=== PATIENT | female | born 1945 | race Caucasian/White ===

== ENCOUNTER 2017-01-03 06:02 | Inpatient (IN) | payer OTHER ==
[2017-01-02 08:07] LABS: BASOPHIL % 0.5 % (0-2); PLATELET COUNT 211 x10^3mcL (130-400); RED CELL DISTRIBUTION WIDTH 14.5 % (11.5-14.5)
[2017-01-02 08:19] LABS: CALCIUM 8.9 mg/dL (8.5-10.1); CARBON DIOXIDE 28.2 mmol/L (21-32); CHLORIDE SERUM 104 mmol/L (98-107); CREATININE SERUM 0.7 mg/dL (0.6-1.0); GFR1 > 60 mL/min; GLUCOSE SERUM 173 mg/dL (74-106); POTASSIUM SERUM 4.2 mmol/L (3.5-5.1); SODIUM SERUM 141 mmol/L (136-145)
[~2017-01-03] VITALS: Ht 154.9 cm; Wt 72.6 kg
[2017-01-03 06:27] VITALS: BP 149/75
[2017-01-03 13:14] VITALS: BP 118/59
[2017-01-03 16:41] VITALS: BP 118/59
[2017-01-03 17:11] LABS: ALBUMIN 3.1 g/dL (3.4-5.0); ALKALINE PHOSPHATASE 218 U/L (46-116); ALT/SGPT 487 U/L (14-59); BILIRUBIN TOTAL 1.8 mg/dL (0.20-1.00); CALCIUM 8.3 mg/dL (8.5-10.1); CARBON DIOXIDE 25.8 mmol/L (21-32); CHLORIDE SERUM 102 mmol/L (98-107); CREATININE SERUM 0.8 mg/dL (0.6-1.0); GFR1 > 60 mL/min; GLUCOSE SERUM 296 mg/dL (74-106); LIPASE 256 IU/L (73-393); POTASSIUM SERUM 4.2 mmol/L (3.5-5.1); SODIUM SERUM 136 mmol/L (136-145); TOTAL PROTEIN, SERUM 6.5 g/dL (6.4-8.2)
[2017-01-03 17:12] LABS: AST/SGOT 1505 U/L (15-37)
[2017-01-03 17:34] VITALS: BP 118/54
[2017-01-03 17:40] LABS: MAGNESIUM 1.6 mg/dL (1.8-2.4); PHOSPHOROUS 3.7 mg/dL (2.5-4.9)
[2017-01-03 17:41] LABS: CHOLESTEROL/HDL RATIO 4.5
[2017-01-03 17:43] LABS: T3 TOTAL 0.85 ng/mL
[2017-01-03 17:58] LABS: FREE T4 1.26 ng/dL (0.76-1.46); FREE THYROXINE INDEX 3.5 ug/dL (1.4-4.5); T4(THYROXINE) 9.6 ug/dL (4.7-13.3)
[2017-01-03 20:02] LABS: UA SPECIFIC GRAVITY 1.015 (1.005-1.035); microscopic required? YES; urine erythrocyte NEGATIVE (NEGATIVE)
[2017-01-03 21:58] VITALS: BP 134/63
[2017-01-04 08:55] LABS: CALCIUM 8.2 mg/dL (8.5-10.1); CARBON DIOXIDE 27.5 mmol/L (21-32); CHLORIDE SERUM 104 mmol/L (98-107); CREATININE SERUM 0.6 mg/dL (0.6-1.0); GFR1 > 60 mL/min; GLUCOSE SERUM 120 mg/dL (74-106); MAGNESIUM 2.8 mg/dL (1.8-2.4); PHOSPHOROUS 3.7 mg/dL (2.5-4.9); POTASSIUM SERUM 3.7 mmol/L (3.5-5.1); SODIUM SERUM 140 mmol/L (136-145)
[2017-01-04 08:56] LABS: BASOPHIL % 0.6 % (0-2); PLATELET COUNT 184 x10^3mcL (130-400); RED CELL DISTRIBUTION WIDTH 14.4 % (11.5-14.5)
[2017-01-04 11:01] VITALS: BP 135/60
[2017-01-04] MEDS ORDERED: IND20 PO (13:50)
[2017-01-04] MEDS ORDERED: APAP/HYDROCODON1 T13 PO (13:54)
[2017-01-04] MEDS ORDERED: TYL650S PR (13:55)
[2017-01-04 14:15] VITALS: BP 141/62
[2017-01-04 15:01] VITALS: BP 128/61
[2017-01-04] MEDS ORDERED: SERTRALINE50 M1 PO (15:25)
[2017-01-04] MEDS ORDERED: ZOF4 PO (15:25)
[2017-01-04] MEDS ORDERED: NOR10T PO (15:46)
[2017-01-04 16:06] LABS: BILIRUBIN DIRECT 1.18 mg/dL (0.0-0.2); BILIRUBIN TOTAL 2.03 mg/dL (0.20-1.00); TOTAL PROTEIN, SERUM 6.5 g/dL (6.4-8.2)
[2017-01-04 16:17] LABS: ALBUMIN 3.2 g/dL (3.4-5.0)
[2017-01-04 17:48] VITALS: BP 122/58
[2017-01-04 18:15] LABS: BASOPHIL % 0.9 % (0-2); PLATELET COUNT 194 x10^3mcL (130-400)
[2017-01-04 18:19] LABS: RED CELL DISTRIBUTION WIDTH 15.2 % (11.5-14.5)
[2017-01-04 20:56] VITALS: BP 120/55
[2017-01-05 05:48] VITALS: BP 124/70
[2017-01-05 06:15] LABS: ALBUMIN 3.3 g/dL (3.4-5.0); ALKALINE PHOSPHATASE 300 U/L (46-116); ALT/SGPT 351 U/L (14-59); AST/SGOT 262 U/L (15-37); BILIRUBIN TOTAL 0.84 mg/dL (0.20-1.00); CALCIUM 8.6 mg/dL (8.5-10.1); CARBON DIOXIDE 27.1 mmol/L (21-32); CHLORIDE SERUM 102 mmol/L (98-107); CREATININE SERUM 0.7 mg/dL (0.6-1.0); GFR1 > 60 mL/min; GLUCOSE SERUM 241 mg/dL (74-106); POTASSIUM SERUM 3.8 mmol/L (3.5-5.1); SODIUM SERUM 134 mmol/L (136-145); TOTAL PROTEIN, SERUM 7.4 g/dL (6.4-8.2)
[2017-01-05 09:45] VITALS: BP 148/76
[2017-01-05 15:08] VITALS: BP 135/70
[2017-01-05] MEDS ORDERED: ZOLOFT100 MG PO (15:45)
[2017-01-05] MEDS ORDERED: COLACE100 MG PO (15:47)
== END 2017-01-05 16:39 | disposition home or self-care (01) | DRG 445 ==
LOC: DS 06:02 → DU 06:02 → OR 07:30 → GI 07:30 → DU 10:04 → OR 10:30 → DS 01-05 11:28 → DU 01-05 11:29
PROVIDERS: Internal Medicine; ADMIT Family Medicine
PROC: 0F798DZ Dilation of Common Bile Duct with Intraluminal Device, Via Natural or Artificial Opening Endoscopic (ICD-10-PCS; principal; 2017-01-05)
PROC: BF18YZZ Fluoroscopy of Pancreatic Ducts using Other Contrast (ICD-10-PCS; 2017-01-05)
DX: K80.50 Calculus of bile duct without cholangitis or cholecystitis without obstruction (principal); D68.69 Other thrombophilia; E44.1 Mild protein-calorie malnutrition; E11.51 Type 2 diabetes mellitus with diabetic peripheral angiopathy without gangrene; F41.9 Anxiety disorder, unspecified; E83.42 Hypomagnesemia; R74.0 Nonspecific elevation of levels of transaminase and lactic acid dehydrogenase [LDH]; E78.5 Hyperlipidemia, unspecified; I10 Essential (primary) hypertension; I69.392 Facial weakness following cerebral infarction; E66.9 Obesity, unspecified; Z68.30 Body mass index [BMI] 30.0-30.9, adult
CPT/HCPCS: 43262; 82962; 83880; 84439; C1769; C2617; J1170; J1885; J2270; J2405; J2704; J2920; J3010; J3475; J3490; J7030; J7120; Q0092; Q9967